=== PATIENT | female | born 1950 | race Caucasian/White ===

== ENCOUNTER → 2016-12-03 | Outpatient (CLI) | payer OTHER ==
[~2016-12-03] MED LIST: ALEV220C2 PO; BYDU1INJ SC; LANTINJ4 SC; LISI10TA4 PO; MISO200T3 PO; NOVOINJ3 SC; OMEP40CA2 PO; SIMV80TA PO; TRAM50TA2 PO; ZOLO100T PO
[2016-12-03 19:49] LABS: MEAN CORPUSCULAR HEMOGLOBIN 28.9 pg (27.0-33.0); MEAN CORPUSCULAR HGB CONC 33.2 g/dl (32.0-36.5); MEAN CORPUSCULAR VOLUME 87.1 fl (80.0-96.0); RED CELL DISTRIBUTION WIDTH 12.5 % (11.5-14.5)
[2016-12-03 20:05] LABS: ALBUMIN 4.2 GM/DL (3.2-5.2); ALBUMIN/GLOBULIN RATIO 1.14 (1.00-1.93); ALKALINE PHOSPHATASE 97 U/L (45-117); ALT/SGPT 17 U/L (12-78); ANION GAP 10 MEQ/L (8-16); AST/SGOT 17 U/L (15-37); BILIRUBIN,TOTAL 0.4 MG/DL (0.2-1.0); BLOOD UREA NITROGEN 20 MG/DL (7-18); CALCIUM LEVEL 9.8 MG/DL (8.8-10.2); CARBON DIOXIDE LEVEL 27 MEQ/L (21-32); CHLORIDE LEVEL 107 MEQ/L (98-107); CREATININE FOR GFR 0.92 MG/DL (0.55-1.02); GLOMERULAR FILTRATION RATE > 60.0 (>45); GLUCOSE, FASTING 170 MG/DL (80-110); POTASSIUM SERUM 4.2 MEQ/L (3.5-5.1); SODIUM LEVEL 144 MEQ/L (136-145); TOTAL PROTEIN 7.9 GM/DL (6.4-8.2)
== END ==
LOC: M WUC 17:18
PROVIDERS: ATTEND Family Medicine
DX: Z01.812 Encounter for preprocedural laboratory examination (principal)

== ENCOUNTER → 2016-12-16 | Day surgery (SDC) | payer OTHER ==
[~2016-12-16] VITALS: Ht 162.6 cm; Wt 88.5 kg
[~2016-12-16] MED LIST changes: +KETOROLAC 30 MG/ML VIAL (J1885) IV SCH; +KETOROLAC 60 MG/2 ML VIAL (J1885) As Ordered ONE; +LIDOCAINE 2% INJ 100 MG/5 ML SDV (FOR ANES.) As Ordered ONE; +LR 1,000 ML IV SCH; +MIDAZOLAM INJ 2 MG/2 ML VIAL (J2250) As Ordered ONE; +ONDANSETRON 4MG/2ML VIAL (J2405) As Ordered ONE; +PERCOCET 5MG/325MG TAB PO PRN; +PROPOFOL 200 MG/20 ML VIAL As Ordered ONE; +fentaNYL 100 MCG/2 ML INJECTION (J3010) As Ordered ONE; +fentaNYL 100 MCG/2 ML INJECTION (J3010) IV PRN
[2016-12-16 11:24] LABS: MEAN CORPUSCULAR HGB CONC 34.1 g/dl (32.0-36.5); MEAN CORPUSCULAR VOLUME 87.9 fl (80.0-96.0); RED CELL DISTRIBUTION WIDTH 12.5 % (11.5-14.5); WHITE BLOOD COUNT 6.5 K/mm3 (4.0-10.0)
--- NOTE | 2016-12-16 16:21 | RO ---
DATE OF PROCEDURE: 12/16/2016 PREOPERATIVE DIAGNOSIS: 1. Postmenopausal bleeding. POSTOPERATIVE DIAGNOSIS: 1. Postmenopausal bleeding. 2. Endometrial polyp. PROCEDURE PERFORMED: Hysteroscopy, dilation and curettage with the MyoSure. SURGEON: Iris Ann MD EQUIP MAINT ENG: ANESTHESIA: General anesthesia via a laryngeal mask airway. PREOPERATIVE ANTIBIOTICS: None. ESTIMATED BLOOD LOSS: 5 mL. SPECIMENS: Endometrial polyp. INTRAVENOUS FLUIDS: 800 mL of lactated Ringer's solution. URINE OUTPUT: 100 mL. OPERATIVE FINDINGS: Approximately 3 cm endometrial polyp, patient sounded to 9 cm, bilateral ostia were visualized. DESCRIPTION OF PROCEDURE: After informed consent was obtained and written consent was reviewed, the patient was brought to the operating room where general anesthesia was obtained. She was then placed in the lithotomy position and was prepped and draped in the normal sterile fashion. A time-out in the operating room was then performed identifying the patient, procedure to be performed as well as drug allergies. [place] speculum was then placed revealing the cervix. The anterior lip of the cervix was grasped with a single-tooth tenaculum. The cervix was then sounded to 9 cm. The cervix was then sequentially dilated using Hanks dilators. The hysteroscope was then advanced through the cervical os revealing a 3 cm endometrial polyp. The MyoSure morcellator was then advanced through the hysteroscope and the endometrial polyp was then morcellated using the MyoSure. The MyoSure device as well as hysteroscope was removed. A sharp curette was then advanced through the cervical os at the level of the fundus and the uterus was curetted in a 360-degree fashion. Specimens were collected and all were sent to pathology for evaluation. Single-tooth tenaculum was then removed, tenaculum site was noted to be hemostatic. The speculum was then removed. In-and-out catheter was then performed productive of 100 mL of clear urine. The patient was taken out of the lithotomy position, was awakened from general anesthesia and taken to recovery in stable condition. Counts were correct.
[2016-12-16 16:45] VITALS: BP 173/74
== END | disposition home or self-care (01) ==
LOC: M SDC 10:59
PROVIDERS: ATTEND Obstetrics & Gynecology
DX: N95.0 Postmenopausal bleeding (principal); N84.0 Polyp of corpus uteri; I10 Essential (primary) hypertension; I77.6 Arteritis, unspecified; E11.40 Type 2 diabetes mellitus with diabetic neuropathy, unspecified; E78.5 Hyperlipidemia, unspecified; T88.59XD Other complications of anesthesia, subsequent encounter; K44.9 Diaphragmatic hernia without obstruction or gangrene; K21.9 Gastro-esophageal reflux disease without esophagitis; M79.7 Fibromyalgia; F32.9 Major depressive disorder, single episode, unspecified; Z88.2 Allergy status to sulfonamides; Z88.5 Allergy status to narcotic agent; Z88.7 Allergy status to serum and vaccine; Z88.8 Allergy status to other drugs, medicaments and biological substances; Z79.899 Other long term (current) drug therapy; Z79.4 Long term (current) use of insulin; Z78.0 Asymptomatic menopausal state; Z98.51 Tubal ligation status
CPT/HCPCS: 36415; 58558; 85027; 86850; 86900; 86901; 88305; J1885; J2250; J2405; J3010

== ENCOUNTER 2017-02-05 09:24 | Day surgery (SDC) | payer OTHER ==
[~2017-02-05] VITALS: Ht 165.1 cm; Wt 91.2 kg
[2017-02-05] VITALS (7 sets, daily range): BP systolic 111–126; BP diastolic 52–60
[~2017-02-05 09:24] MED LIST changes: -KETOROLAC 30 MG/ML VIAL (J1885) IV SCH; -KETOROLAC 60 MG/2 ML VIAL (J1885) As Ordered ONE; -LR 1,000 ML IV SCH; -PERCOCET 5MG/325MG TAB PO PRN; +ROCURONIUM BROMIDE 50 MG/5 ML VIAL As Ordered ONE; -fentaNYL 100 MCG/2 ML INJECTION (J3010) IV PRN
[2017-02-05] MEDS ORDERED: LR 1,000 ML IV SCH ×2 (09:45→13:45)
[2017-02-05] MEDS ORDERED: BUPIVACAINE HCL 0.25% 30 ML VIAL As Ordered ONE (10:21)
[2017-02-05] MEDS ORDERED: fentaNYL 100 MCG/2 ML INJECTION (J3010) As Ordered ONE (11:11)
[2017-02-05] MEDS ORDERED: ROCURONIUM BROMIDE 50 MG/5 ML VIAL As Ordered ONE (11:12)
[2017-02-05] MEDS ORDERED: HYDROmorphone HCL 2 MG/ML 1ML VIAL (J1170) As Ordered ONE (12:07)
[2017-02-05] MEDS ORDERED: NEOSTIGMINE 1MG/ML 5 ML SYRINGE (J2710) As Ordered ONE (12:45)
[2017-02-05] MEDS ORDERED: GLYCOPYRROLATE INJ 0.2 MG/ML 2 ML VIAL As Ordered ONE (12:45)
[2017-02-05] MEDS ORDERED: KETOROLAC 30 MG/ML VIAL (J1885) As Ordered ONE (13:30)
[2017-02-05] MEDS: KETOROLAC 30 MG/ML VIAL (J1885) IV SCH ×2 (13:38→20:12)
[2017-02-05] MEDS ORDERED: KETOROLAC 30 MG/ML VIAL (J1885) IV PRN (13:45)
[2017-02-05] MEDS ORDERED: fentaNYL 100 MCG/2 ML INJECTION (J3010) IV PRN (13:45)
[2017-02-05] MEDS ORDERED: HYDROmorphone HCL 1 MG/ML SYRINGE (J1170) IV PRN (13:45)
[2017-02-05] MEDS ORDERED: ONDANSETRON 4MG/2ML VIAL (J2405) IV PRN (13:45)
[2017-02-05] MEDS ORDERED: PERCOCET 5MG/325MG TAB PO PRN (13:45)
[2017-02-05] MEDS ORDERED: zolPIDEM TARTRATE 10MG TAB PO PRN (14:00)
[2017-02-05] MEDS ORDERED: PROMETHAZINE INJ 25 MG/ML VIAL (J2550) IV PRN (14:00)
[2017-02-05] MEDS ORDERED: traMADol 50 MG TAB PO PRN ×2 (14:00)
[2017-02-05] MEDS ORDERED: MORPHINE 4 MG/ML 1ML SYRINGE IV PRN (14:00)
[2017-02-05] MEDS: LR 1,000 ML IV SCH ×2 (15:59→18:27)
[2017-02-06] VITALS: BP 106/53
[2017-02-06] MEDS: KETOROLAC 30 MG/ML VIAL (J1885) IV SCH ×2 (02:21→07:56)
[2017-02-06 04:00] VITALS: BP 129/59
[2017-02-06] MEDS: LR 1,000 ML IV SCH (06:00)
--- NOTE | 2017-02-06 07:25 | RO ---
DATE OF PROCEDURE: 02/05/2017 PREOPERATIVE DIAGNOSIS: Endometrial hyperplasia. POSTOPERATIVE DIAGNOSIS: Endometrial hyperplasia. PROCEDURE PERFORMED: 1. Robotic-assisted laparoscopic hysterectomy. 2. Left oophorectomy. 3. Cystoscopy. SURGEON: Iris Ann MD AUTO RENTAL CLERK: NATHANIEL Reyes ANESTHESIA: General endotracheal anesthesia. INTRAVENOUS FLUIDS: 1300 mL of lactated Ringer's solution. SPECIMENS: Cervix. Uterus. Left ovary. PREOPERATIVE ANTIBIOTICS: 3 grams of Ancef. OPERATIVE FINDINGS: Approximately 10 week size uterus. Atrophic appearing bilateral adnexa. CYSTOSCOPIC FINDINGS: Good urethral reflux bilaterally. No evidence of trauma to the bladder or foreign bodies. DESCRIPTION OF OPERATION: After informed consent was obtained and written consent was reviewed, the patient was brought to the operating room where general endotracheal anesthesia was obtained. She was then placed in the lithotomy position, and was prepped and draped in a normal sterile fashion. A time out in the operating room was then performed identifying the patient, procedure to be performed as well as drug allergies. A speculum was then placed revealing the cervix. The anterior and posterior aspect of the cervix was stitched with #0 Vicryl. The uterus was then sequentially dilated using Hanks dilators. A medium V-care uterine manipulator was then advanced through the cervical os for means to manipulate the uterus. The uterine balloon was then insufflated with 10 mL of air. The cervical as well as the vaginal sleeve was advanced down into the vagina. Instruments were removed from the vagina. A Gabriel catheter was then placed and set to gravity. Gloves were changed and attention was turned to the patient's abdomen where a Veress needle was placed in the umbilicus. A pneumoperitoneum was then obtained with CO2 gas. The supraumbilical area was infused with 0.25% Marcaine. An incision was made in this area and a 12 mm trocar sleeve was advanced through this incision. A laparoscope was then placed revealing intra-abdominal placement. Two lateral ports, left and to the right of the umbilicus were placed. Each of these were infused with 0.25% Marcaine. 8 mm trocars and sleeves were advanced through each one of these incisions under direct visualization. A fourth trocar was placed to the left side of the patient's abdomen. This area was infused with 0.25% Marcaine. An incision was made in this area, and another 8 mm trocar sleeve was advanced through this incision under direct visualization. Next, the Da Genaro was then advanced to the patient's table and it was docked utilizing a camera arm and two operative arms. Utilizing the Da Genaro equipment, with bipolar cautery the utero-ovarian ligaments were then cauterized and ligated with good hemostasis noted bilaterally. The round ligaments on both sides were then cauterized and ligated with good hemostasis noted. The anterior lip of the broad ligament was then dissected along with the bladder creating a bladder flap. The remainder of the broad ligaments and cardinal ligaments were then cauterized and ligated with good hemostasis noted. The uterine arteries were then skeletonized bilaterally and was cauterized and ligated with good hemostasis noted. The anterior and posterior colpotomies were then made, and the uterus was removed vaginally. Surgical sites were inspected and noted to be hemostatic. Next, a left oophorectomy was then performed. The right ovary was densely adhered to the pelvic sidewall and very atrophic. I made a decision to forego the prophylactic right oophorectomy. The left ovary was then placed in traction. The infundibulopelvic ligament was then cauterized and ligated with good hemostasis noted. The specimen was brought out through the vaginal incision. Next, the vaginal cuff was closed laparoscopically using the #2-0 V-Loc system in a running fashion. Surgical sites were inspected and noted to be hemostatic. The abdomen was then irrigated and suctioned. Ebony was applied over the surgical field. Next, cystoscopy was performed. The Gabriel catheter was then removed. A cystoscope was advanced through the urethra. A cystoscopy was performed revealing normal bladder mucosa, bilateral ureteral jets. The bladder was then drained. Gloves were changed and attention was turned to the patient's abdomen where all skin incisions were closed with #4-0 Monocryl and was dressed with Dermabond. The patient was then taken out of lithotomy position, was awakened from general anesthesia, and taken to recovery in stable condition. Marilu Valle, my produce assistant, played an essential role in this operation. She assisted with identification of vital structures, manipulation, port placement, as well as skin closure. Counts were correct. PARVIN
[2017-02-06 07:27] LABS: MEAN CORPUSCULAR HEMOGLOBIN 28.7 pg (27.0-33.0); MEAN CORPUSCULAR HGB CONC 32.8 g/dl (32.0-36.5); MEAN CORPUSCULAR VOLUME 87.5 fl (80.0-96.0); RED CELL DISTRIBUTION WIDTH 12.8 % (11.5-14.5); WHITE BLOOD COUNT 7.7 K/mm3 (4.0-10.0)
[2017-02-06 08:00] VITALS: BP 112/52
[2017-02-06] MEDS ORDERED: GLUCOSE 4 GM CHEW TABLET PO PRN (09:00)
[2017-02-06] MEDS ORDERED: DEXTROSE 50% 50 ML SYRINGE IV PRN (09:00)
[2017-02-06] MEDS ORDERED: GLUCAGON FOR INJ 1 MG VIAL (J1610) SC PRN (09:00)
[2017-02-06] MEDS: HumaLOG INSULIN (NovoLOG) PER UNIT SC SCH ×2 (09:11→12:02)
[2017-02-06 12:00] VITALS: BP 122/57
== END 2017-02-06 13:40 | disposition home or self-care (01) ==
LOC: M SDC 09:24 → M PED 15:06 → M SDC 02-06 13:40
PROVIDERS: ATTEND Obstetrics & Gynecology
DX: N85.00 Endometrial hyperplasia, unspecified (principal); M79.7 Fibromyalgia; T88.59XD Other complications of anesthesia, subsequent encounter; I10 Essential (primary) hypertension; E78.5 Hyperlipidemia, unspecified; E11.41 Type 2 diabetes mellitus with diabetic mononeuropathy; K44.9 Diaphragmatic hernia without obstruction or gangrene; K21.9 Gastro-esophageal reflux disease without esophagitis; M54.9 Dorsalgia, unspecified; F32.9 Major depressive disorder, single episode, unspecified; Z88.2 Allergy status to sulfonamides; Z88.5 Allergy status to narcotic agent; Z88.7 Allergy status to serum and vaccine; Z88.8 Allergy status to other drugs, medicaments and biological substances; Z91.09 Other allergy status, other than to drugs and biological substances; Z79.899 Other long term (current) drug therapy; Z85.42 Personal history of malignant neoplasm of other parts of uterus; Z98.51 Tubal ligation status
CPT/HCPCS: 36415; 58571; 85027; 86850; 86900; 86901; 88309; 96374; 96375; J0690; J1170; J1885; J2250; J2405; J2710; J3010

== ENCOUNTER → 2018-03-13 | Outpatient (REF) | payer OTHER ==
[2018-03-13 15:53] LABS: ALBUMIN 3.5 GM/DL (3.2-5.2); ALBUMIN/GLOBULIN RATIO 0.83 (1.00-1.93); ALKALINE PHOSPHATASE 106 U/L (45-117); ALT/SGPT 20 U/L (12-78); ANION GAP 6 MEQ/L (8-16); AST/SGOT 21 U/L (7-37); BILIRUBIN,TOTAL 0.4 MG/DL (0.2-1.0); BLOOD UREA NITROGEN 23 MG/DL (7-18); CALCIUM LEVEL 8.8 MG/DL (8.8-10.2); CARBON DIOXIDE LEVEL 28 MEQ/L (21-32); CHLORIDE LEVEL 107 MEQ/L (98-107); CHOLESTEROL LEVEL 323 MG/DL (<200); CHOLESTEROL RISK RATIO 7.511 (<5); CREATININE FOR GFR 1.05 MG/DL (0.55-1.30); FREE T4 0.87 NG/DL (0.76-1.46); GLOMERULAR FILTRATION RATE 55.7 (>45); GLUCOSE, FASTING 219 MG/DL (70-100); HDL CHOLESTEROL 43 MG/DL (>40); NON-HDL-C 280 MG/DL; POTASSIUM SERUM 4.8 MEQ/L (3.5-5.1); SODIUM LEVEL 141 MEQ/L (136-145); TOTAL PROTEIN 7.7 GM/DL (6.4-8.2); TRIGLYCERIDES LEVEL 497 MG/DL (<150)
== END ==
LOC: M LABDRAW1 13:53
DX: E04.0 Nontoxic diffuse goiter (principal); E78.2 Mixed hyperlipidemia
CPT/HCPCS: 84443

== ENCOUNTER → 2018-06-05 | Outpatient (REF) | payer OTHER ==
[2018-06-05 13:57] LABS: CHOLESTEROL LEVEL 242 MG/DL (<200); CHOLESTEROL RISK RATIO 4.938 (<5); HDL CHOLESTEROL 49 MG/DL (>40); LDL CHOLESTEROL 159.4 MG/DL (<100); NON-HDL-C 193 MG/DL; TRIGLYCERIDES LEVEL 168 MG/DL (<150)
== END ==
LOC: M LABDRAW1 13:08
DX: E78.2 Mixed hyperlipidemia (principal)

== ENCOUNTER → 2018-06-11 | Outpatient (CLI) | payer OTHER | LOC: M WHC 12:55 | DX: R10.2 Pelvic and perineal pain (principal); Z90.710 Acquired absence of both cervix and uterus | CPT/HCPCS: 76830 ==

== ENCOUNTER → 2018-09-04 | Outpatient (REF) | payer OTHER ==
[2018-09-04 16:39] LABS: ALBUMIN 3.6 GM/DL (3.2-5.2); ALBUMIN/GLOBULIN RATIO 0.92 (1.00-1.93); ALKALINE PHOSPHATASE 90 U/L (45-117); ALT/SGPT 19 U/L (12-78); ANION GAP 7 MEQ/L (8-16); AST/SGOT 17 U/L (7-37); BILIRUBIN,TOTAL 0.3 MG/DL (0.2-1.0); BLOOD UREA NITROGEN 27 MG/DL (7-18); CALCIUM LEVEL 9.2 MG/DL (8.8-10.2); CARBON DIOXIDE LEVEL 28 MEQ/L (21-32); CHLORIDE LEVEL 106 MEQ/L (98-107); GLOMERULAR FILTRATION RATE 52.6 (>45); GLUCOSE, FASTING 197 MG/DL (70-100); POTASSIUM SERUM 4.2 MEQ/L (3.5-5.1); SODIUM LEVEL 141 MEQ/L (136-145); TOTAL PROTEIN 7.5 GM/DL (6.4-8.2)
[2018-09-04 16:46] LABS: BASO % 0.3 % (0.0-1.0); EOS # 0.1 10^3/uL (0.0-0.50); EOS % 1.5 % (0.0-3.0); HEMATOCRIT 42.3 % (36.0-47.0); HEMOGLOBIN 13.6 g/dl (12.0-15.5); IMMATURE GRANULOCYTE % 0.3 % (0-3.0); LYMPH # 2.5 10^3/uL (1.5-4.5); MEAN CORPUSCULAR HEMOGLOBIN 28.6 pg (27.0-33.0); MEAN CORPUSCULAR HGB CONC 32.2 g/dl (32.0-36.5); MEAN CORPUSCULAR VOLUME 89.1 fl (80.0-96.0); MONO # 0.4 10^3/uL (0.0-0.8); MONO % 6.6 % (0.0-5.0); NEUTROPHILS # 3.4 10^3/uL (1.8-7.7); NEUTROPHILS % 53.3 % (36.0-66.0); PLATELET COUNT, AUTOMATED 206 10^3/uL (150-450); RED BLOOD COUNT 4.75 10^6/uL (4.00-5.40); RED CELL DISTRIBUTION WIDTH 12.3 % (11.5-14.5); WHITE BLOOD COUNT 6.5 10^3/uL (4.0-10.0)
[2018-09-04 18:00] LABS: ERYTHROCYTE SEDIMENTATION RATE 26 mm/hr (0-30)
== END ==
LOC: M LABDRAW1 15:56
DX: Z79.899 Other long term (current) drug therapy (principal)

== ENCOUNTER → 2019-07-09 | Outpatient (CLI) | payer OTHER ==
[~2019-07-09] MED LIST changes: -LIDOCAINE 2% INJ 100 MG/5 ML SDV (FOR ANES.) As Ordered ONE; -MIDAZOLAM INJ 2 MG/2 ML VIAL (J2250) As Ordered ONE; -MISO200T3 PO; +MISO200T56 PO; -ONDANSETRON 4MG/2ML VIAL (J2405) As Ordered ONE; -PROPOFOL 200 MG/20 ML VIAL As Ordered ONE; -ROCURONIUM BROMIDE 50 MG/5 ML VIAL As Ordered ONE; -SIMV80TA PO; +SIMV80TA13 PO; -fentaNYL 100 MCG/2 ML INJECTION (J3010) As Ordered ONE
--- NOTE | 2019-07-09 14:16 | REPMRS ---
Patient History The patient states she had a clinical breast exam in 06/2019. Patient is postmenopausal and has history of endometrial cancer at age 66. Family history of breast cancer at age 50 or over in mother, breast cancer at age 37 in sister, breast cancer at age 49 in niece, breast cancer at age 41 in daughter. Benign excisional biopsy of the left breast, 2006. Excisional biopsy. No Hormone Replacement Therapy 3D TOMOSYNTHESIS WAS PERFORMED. The [facility] lifetime risk for breast cancer is 13.0%. Digital Woman Screen Mammo: July 09, 2019 - Exam #: [id number] Bilateral CC and MLO view(s) were taken. Technologist: Shanique Quiles, Technologist Prior study comparison: September 27, 2016, digital woman screen mammo performed at [facility]. June 02, 2015, digital woman screen mammo performed at [facility]. FINDINGS: The breast tissue is heterogeneously dense. This may lower the sensitivity of mammography. There has been no change in the appearance of the mammogram from the prior studies. There is a moderate amount of residual fibroglandular tissue which is fairly symmetric. There is no interval development of dominant mass, areas of architectural distortion, or clustered microcalcification typical of malignancy. Assessment: BI-RADS/ACR category 1 mammogram. Negative Mammogram. Recommendation Routine screening mammogram in 1 year (for women over age 40). This mammogram was interpreted with the aid of an FDA-approved computer-aided dectection system. Electronically Signed By: Rigoberto Spencer MD 07/09/19 [id number]
== END ==
LOC: M WHC 13:19
PROVIDERS: ATTEND Nurse Practitioner Family
DX: Z12.31 Encounter for screening mammogram for malignant neoplasm of breast (principal); Z78.0 Asymptomatic menopausal state; Z85.42 Personal history of malignant neoplasm of other parts of uterus; Z80.3 Family history of malignant neoplasm of breast

== ENCOUNTER → 2019-09-06 | Outpatient (REF) | payer OTHER ==
[~2019-09-06] MED LIST changes: -OMEP40CA2 PO; +OMEP40CA97 PO
[2019-09-06 13:21] LABS: ALBUMIN 3.7 GM/DL (3.2-5.2); ALT/SGPT 15 U/L (12-78); BILIRUBIN,TOTAL 0.4 MG/DL (0.2-1.0); BLOOD UREA NITROGEN 20 MG/DL (7-18); CALCIUM LEVEL 9.6 MG/DL (8.8-10.2); CARBON DIOXIDE LEVEL 32 MEQ/L (21-32); CHLORIDE LEVEL 105 MEQ/L (98-107); CHOLESTEROL LEVEL 233 MG/DL (<200); CHOLESTEROL RISK RATIO 4.236 (<5); CREATININE FOR GFR 0.89 MG/DL (0.55-1.30); FREE T4 0.85 NG/DL (0.76-1.46); GLOMERULAR FILTRATION RATE > 60.0 (>45); GLUCOSE, FASTING 180 MG/DL (70-100); HDL CHOLESTEROL 55 MG/DL (>40); LDL CHOLESTEROL 128 MG/DL (<100); NON-HDL-C 178 MG/DL; POTASSIUM SERUM 4.6 MEQ/L (3.5-5.1); SODIUM LEVEL 141 MEQ/L (136-145); TRIGLYCERIDES LEVEL 250 MG/DL (<150)
[2019-09-06 13:30] LABS: MALB URINE SIEMENS 14.9 MG/L; MAU/CREAT RATIO 13.6 MCG/MG (0.0-30.0)
== END ==
LOC: M LABDRAW1 09:30
PROVIDERS: ATTEND Nurse Practitioner Family
DX: E78.2 Mixed hyperlipidemia (principal); E04.0 Nontoxic diffuse goiter; E11.65 Type 2 diabetes mellitus with hyperglycemia

== ENCOUNTER → 2020-04-19 | Outpatient (CLI) | payer MEDICARE ==
[2020-04-19 07:30] LABS: ALBUMIN 3.4 GM/DL (3.2-5.2); ALT/SGPT 16 U/L (12-78); BILIRUBIN,TOTAL 0.3 MG/DL (0.2-1.0); BLOOD UREA NITROGEN 20 MG/DL (7-18); CALCIUM LEVEL 9.2 MG/DL (8.8-10.2); CARBON DIOXIDE LEVEL 27 MEQ/L (21-32); CHLORIDE LEVEL 108 MEQ/L (98-107); CHOLESTEROL LEVEL 277 MG/DL (<200); CHOLESTEROL RISK RATIO 7.102 (<5); CREATININE FOR GFR 0.89 MG/DL (0.55-1.30); FREE T4 0.95 NG/DL (0.76-1.46); GLOMERULAR FILTRATION RATE > 60.0 (>45); GLUCOSE, FASTING 123 MG/DL (70-100); HDL CHOLESTEROL 39 MG/DL (>40); LDL CHOLESTEROL 185 MG/DL (<100); NON-HDL-C 238 MG/DL; POTASSIUM SERUM 4.1 MEQ/L (3.5-5.1); SODIUM LEVEL 139 MEQ/L (136-145); TOTAL PROTEIN 7.6 GM/DL (6.4-8.2); TRIGLYCERIDES LEVEL 263 MG/DL (<150)
== END ==
LOC: M LAB 06:06
PROVIDERS: ATTEND Nurse Practitioner Family
DX: E78.2 Mixed hyperlipidemia (principal)

== ENCOUNTER → 2020-08-11 | Outpatient (REF) | payer MEDICARE ==
[2020-08-11 18:09] LABS: MALB URINE SIEMENS 27.4 MG/L; MAU/CREAT RATIO 20.6 MCG/MG (0.0-30.0)
== END ==
LOC: M LAB REF 16:55
PROVIDERS: ATTEND Internal Medicine Endocrinology, Diabetes & Metabolism
DX: E11.65 Type 2 diabetes mellitus with hyperglycemia (principal)

== ENCOUNTER → 2020-12-08 | Outpatient (CLI) | payer MEDICARE ==
[~2020-12-08] MED LIST changes: +LISI10TA22 PO; -LISI10TA4 PO
--- NOTE | 2020-12-08 10:12 | REPMRS ---
Patient History The patient states she had a clinical breast exam in November 2020. Family history of breast cancer at age 50 or over in mother, breast cancer at age 37 in sister, breast cancer at age 49 in niece, breast cancer at age 41 in daughter. Benign excisional biopsy of the left breast, 2007. Excisional biopsy. No Hormone Replacement Therapy Digital Woman Screen Mammo: December 08, 2020 - Exam #: [id number] Bilateral CC and MLO view(s) were taken. Technologist: Noemi Abdi Technologist Prior study comparison: July 09, 2019, bilateral digital woman screen mammo performed at [facility]. September 27, 2016, digital woman screen mammo performed at [facility]. June 02, 2015, digital woman screen mammo performed at [facility]. FINDINGS: There are scattered fibroglandular densities. The Volpara volumetric breast density category is:B. There has been no change in the appearance of the mammogram from the prior studies. There is a mild amount of scattered fibroglandular density which is fairly symmetric. There is no interval development of dominant mass, architectural distortion, or grouped microcalcification suggestive of malignancy. 3-D tomosynthesis shows no additional findings. Assessment: BI-RADS/ACR category 1 mammogram. Negative Mammogram. Recommendation Routine screening mammogram of both breasts in 1 year (for women over age 40). This patient's [facility] Lifetime Breast Cancer Risk is estimated at 11.6 %. This mammogram was interpreted with the aid of an FDA-approved computer-aided dectection system. Electronically Signed By: Chano Siddiqui MD 12/08/20 101
== END ==
LOC: M WHC 09:06
PROVIDERS: ATTEND Nurse Practitioner Family
DX: Z12.31 Encounter for screening mammogram for malignant neoplasm of breast (principal); Z80.3 Family history of malignant neoplasm of breast; Z86.018 Personal history of other benign neoplasm

== ENCOUNTER → 2021-01-01 | Outpatient (CLI) | payer MEDICARE ==
[2021-01-01 09:45] LABS: CREATININE FOR GFR 1.1 MG/DL (0.55-1.30); GLOMERULAR FILTRATION RATE 52.3 (>39); POTASSIUM SERUM 4.3 MEQ/L (3.5-5.1)
== END ==
LOC: M LAB 08:47
PROVIDERS: ATTEND Nurse Practitioner Family
DX: E11.65 Type 2 diabetes mellitus with hyperglycemia (principal)

== ENCOUNTER → 2021-04-20 | Outpatient (CLI) | payer MEDICARE ==
[~2021-04-20] MED LIST changes: +OMEP40CA4 PO; -OMEP40CA97 PO
[2021-04-20 14:26] LABS: ALBUMIN 3.8 GM/DL (3.2-5.2); ALT/SGPT 15 U/L (12-78); BILIRUBIN,TOTAL 0.7 MG/DL (0.2-1.0); BLOOD UREA NITROGEN 17 MG/DL (7-18); CALCIUM LEVEL 9.3 MG/DL (8.8-10.2); CARBON DIOXIDE LEVEL 29 MEQ/L (21-32); CHLORIDE LEVEL 107 MEQ/L (98-107); CHOLESTEROL LEVEL 118 MG/DL (<200); CHOLESTEROL RISK RATIO 2.034 (<5); GLOMERULAR FILTRATION RATE > 60.0 (>39); GLUCOSE, FASTING 60 MG/DL (70-100); HDL CHOLESTEROL 58 MG/DL (>40); LDL CHOLESTEROL 37 MG/DL (<100); NON-HDL-C 60 MG/DL; POTASSIUM SERUM 4.1 MEQ/L (3.5-5.1); SODIUM LEVEL 140 MEQ/L (136-145); TRIGLYCERIDES LEVEL 117 MG/DL (<150)
== END ==
LOC: M PLALAB 10:01
PROVIDERS: ATTEND Nurse Practitioner Family
DX: E78.2 Mixed hyperlipidemia (principal); E04.0 Nontoxic diffuse goiter

== ENCOUNTER → 2021-10-05 | Outpatient (REF) | payer MEDICARE ==
[2021-10-08 21:37] LABS: CREATININE, URINE 52.1 MG/DL; MALB URINE SIEMENS 16.8 MG/L; MAU/CREAT RATIO 32.2 MCG/MG (0.0-30.0)
== END ==
LOC: M LAB REF 17:09
PROVIDERS: ATTEND Nurse Practitioner Family
DX: E11.65 Type 2 diabetes mellitus with hyperglycemia (principal)

== ENCOUNTER → 2022-05-03 | Outpatient (CLI) | payer MEDICARE ==
[2022-05-03 13:13] LABS: HEMATOCRIT 43.2 % (36.0-47.0); MEAN CORPUSCULAR HEMOGLOBIN 29.1 pg (27.0-33.0); MEAN CORPUSCULAR HGB CONC 32.4 g/dl (32.0-36.5); MEAN CORPUSCULAR VOLUME 89.8 fl (80.0-96.0); PLATELET COUNT, AUTOMATED 186 10^3/uL (150-450); RED BLOOD COUNT 4.81 10^6/uL (4.00-5.40); WHITE BLOOD COUNT 5.9 10^3/uL (4.0-10.0)
[2022-05-03 13:49] LABS: BLOOD UREA NITROGEN 13 MG/DL (7-18); CALCIUM LEVEL 9.5 MG/DL (8.8-10.2); CARBON DIOXIDE LEVEL 29 MEQ/L (21-32); CHLORIDE LEVEL 111 MEQ/L (98-107); CREATININE FOR GFR 0.88 MG/DL (0.55-1.30); GLOMERULAR FILTRATION RATE > 60.0 (>39); GLUCOSE, FASTING 87 MG/DL (70-100); SODIUM LEVEL 143 MEQ/L (136-145)
[2022-05-03 13:50] LABS: ALBUMIN 3.8 GM/DL (3.2-5.2); ALT/SGPT 16 U/L (12-78); BILIRUBIN,TOTAL 0.6 MG/DL (0.2-1.0); CHOLESTEROL LEVEL 139 MG/DL (<200); CHOLESTEROL RISK RATIO 2.241 (<5); HDL CHOLESTEROL 62 MG/DL (>40); LDL CHOLESTEROL 56 MG/DL (<100); NON-HDL-C 77 MG/DL; TOTAL PROTEIN 7.6 GM/DL (6.4-8.2); TRIGLYCERIDES LEVEL 106 MG/DL (<150)
[2022-05-03 14:23] LABS: HEMOGLOBIN A1c 6.4 %
== END ==
LOC: M PLALAB 10:48
PROVIDERS: ATTEND Family Medicine
DX: I10 Essential (primary) hypertension (principal); E11.9 Type 2 diabetes mellitus without complications

== ENCOUNTER → 2022-09-27 | Outpatient (CLI) | payer MEDICARE | LOC: M SOG 13:17 | PROVIDERS: ATTEND Physician Assistant | DX: M65.4 Radial styloid tenosynovitis [de Quervain] (principal); M79.642 Pain in left hand; M79.641 Pain in right hand ==

== ENCOUNTER → 2022-09-30 | Outpatient (REF) | payer MEDICARE ==
[2022-09-30 19:49] LABS: CREATININE, URINE 146.7 MG/DL
== END ==
LOC: M LAB REF 16:55
PROVIDERS: ATTEND Nurse Practitioner Family
DX: E11.65 Type 2 diabetes mellitus with hyperglycemia (principal)

== ENCOUNTER → 2023-05-01 | Outpatient (CLI) | payer MEDICARE | LOC: M WHC 13:58 | PROVIDERS: ATTEND Nurse Practitioner Family | DX: Z12.31 Encounter for screening mammogram for malignant neoplasm of breast (principal) ==

== ENCOUNTER → 2023-07-11 | Outpatient (CLI) | payer MEDICARE ==
[~2023-07-11] MED LIST changes: -MISO200T56 PO; +MISO200T83 PO
[2023-07-11 14:00] LABS: CREATININE, URINE 133.7 MG/DL
[2023-07-11 14:01] LABS: MAU/CREAT RATIO 4.4 MCG/MG (0.0-30.0); THYROID STIMULATING HORMONE 2.557 uIU/ML (0.55-4.78)
[2023-07-11 14:02] LABS: ALBUMIN 3.9 G/DL (3.2-5.2); ALKALINE PHOSPHATASE 79 U/L (46-116); ALT/SGPT 20 U/L (7.0-40); AST/SGOT 22 U/L (<34); BILIRUBIN,TOTAL 0.7 MG/DL (0.3-1.2); BLOOD UREA NITROGEN 18 MG/DL (9-23); CALCIUM LEVEL 9.5 MG/DL (8.3-10.6); CARBON DIOXIDE LEVEL 30 MMOL/L (20-31); CHLORIDE LEVEL 106 MMOL/L (98-107); CHOLESTEROL LEVEL 137 MG/DL (<200); CHOLESTEROL RISK RATIO 2.24 (<5); CREATININE FOR GFR 0.92 MG/DL (0.55-1.30); GLOMERULAR FILTRATION RATE > 60.0 (>39); GLUCOSE, FASTING 87 MG/DL (74-106); HDL CHOLESTEROL 60.9 MG/DL (>40); LDL CHOLESTEROL 59.5 MG/DL (<100); NON-HDL-C 76.1 MG/DL; POTASSIUM SERUM 4.8 MMOL/L (3.5-5.1); SODIUM LEVEL 143 MMOL/L (136-145); TOTAL PROTEIN 7.6 G/DL (5.7-8.2); TRIGLYCERIDES LEVEL 83 MG/DL (<150)
== END ==
LOC: M PLALAB 10:07
PROVIDERS: ATTEND Nurse Practitioner Family
DX: E78.2 Mixed hyperlipidemia (principal); E04.0 Nontoxic diffuse goiter; E11.65 Type 2 diabetes mellitus with hyperglycemia

== ENCOUNTER 2024-05-06 14:34 | Inpatient (IN) | payer MEDICARE ==
[~2024-05-06] VITALS: Ht 165.1 cm; Wt 87.9 kg
[2024-05-06] MEDS ORDERED: INSU100I24 SC (14:50)
[2024-05-06] MEDS ORDERED: EZET10TA21 PO (14:50)
[2024-05-06] MEDS ORDERED: TRUL0.5I SC (14:50)
[2024-05-06 16:08] LABS: BASO % 0.2 % (0.0-1.0); EOS # 0.1 10^3/uL (0.0-0.5); EOS % 0.8 % (0.0-3.0); HEMATOCRIT 41.1 % (36.0-47.0); HEMOGLOBIN 13.4 g/dl (12.0-15.5); LYMPH # 2.8 10^3/uL (1.5-5.0); LYMPH % 30.6 % (24.0-44.0); MEAN CORPUSCULAR HEMOGLOBIN 29.4 pg (27.0-33.0); MEAN CORPUSCULAR HGB CONC 32.6 g/dl (32.0-36.5); MEAN CORPUSCULAR VOLUME 90.1 fl (80.0-96.0); MONO # 0.6 10^3/uL (0.0-0.8); MONO % 6.5 % (2.0-8.0); NEUTROPHILS # 5.6 10^3/uL (1.5-8.5); NEUTROPHILS % 61.6 % (36.0-66.0); PLATELET COUNT, AUTOMATED 181 10^3/uL (150-450); RED BLOOD COUNT 4.56 10^6/uL (4.00-5.40)
[2024-05-06 16:20] LABS: INR 0.99; PROTHROMBIN TIME 12.8 SECONDS (12.5-14.5)
[2024-05-06 17:50] LABS: ALBUMIN 3.8 G/DL (3.2-5.2); BILIRUBIN,DIRECT 0.2 MG/DL (<0.4); BILIRUBIN,TOTAL 0.6 MG/DL (0.3-1.2); CALCIUM LEVEL 8.9 MG/DL (8.3-10.6); CK-MB VALUE MASS 1.3 NG/ML (<3.6); CREATININE FOR GFR 2.6 MG/DL (0.55-1.30); GLOMERULAR FILTRATION RATE 19.2 (>39); MB/CK RELATIVE INDEX 0.55 (< OR =4); POTASSIUM SERUM 4.7 MMOL/L (3.5-5.1)
[2024-05-06] MEDS: NS 1,000 ML IV SCH ×2 (18:15→21:45)
[2024-05-06] MEDS: NS 1,000 ML IV ONE (18:24)
[2024-05-06 18:42] LABS: URIC ACID 9.6 MG/DL (3.1-7.8)
[2024-05-06] MEDS ORDERED: ESOM40CA35 PO (20:35)
[2024-05-06] MEDS ORDERED: ROSU20TA61 PO (20:35)
[2024-05-06] MEDS ORDERED: HOME MED LIST COMPLETE! XX SCH (20:40)
[2024-05-06] MEDS: INSULIN LISPRO (NovoLOG) PER UNIT SC SCH (21:00)
[2024-05-06] MEDS ORDERED: ACETAMINOPHEN TAB 650MG DOSE (2X325MG) PO PRN (21:45)
[2024-05-06] MEDS ORDERED: GLUCAGON INJ 1MG VIAL SC PRN (21:45)
[2024-05-06] MEDS ORDERED: GLUCOSE 4 GM CHEW PO PRN (21:45)
[2024-05-06] MEDS ORDERED: DEXTROSE 50% 50ML SYRINGE IV PRN (21:45)
[2024-05-06] MEDS ORDERED: MIRALAX *UNIT DOSE* 17GM PACKET PO PRN (22:05)
[2024-05-06 23:00] VITALS: BP 120/56; O2SAT 95
[2024-05-06 23:07] VITALS: BP 117/53; O2SAT 98
[2024-05-06 23:15] VITALS: BP 107/56; O2SAT 94
[2024-05-06 23:30] VITALS: BP 154/67; TEMP 98.1
[2024-05-06 23:45] VITALS: O2SAT 93
[2024-05-07] VITALS (26 sets, daily range): BP systolic 103–155; BP diastolic 53–67; TEMP 97.4–97.9; O2SAT 18–98
[2024-05-07 02:02] LABS: OSMOLALITY URINE 488 MOSM/KG (50-1400)
[2024-05-07 03:00] LABS: SODIUM,RANDOM URINE 56 MMOL/L
[2024-05-07 03:10] LABS: CREATININE,RANDOM URINE 135.8 MG/DL
[2024-05-07 04:09] LABS: APPEARANCE, URINE CLEAR (CLEAR); BACTERIA, URINE AUTO 1+ (NEGATIVE); BILIRUBIN, URINE AUTO NEGATIVE (NEGATIVE); BLOOD, URINE BLOOD NEGATIVE (NEGATIVE); COLOR, URINE YELLOW (YELLOW); GLUCOSE, URINE (UA) AUTO NEGATIVE (NEGATIVE); KETONE, URINE AUTO TRACE mg/dL (NEGATIVE); LEUKOCYTE ESTERASE, URINE AUTO NEGATIVE (NEGATIVE); MUCUS, URINE SMALL (NEGATIVE); NITRITE, URINE AUTO NEGATIVE (NEGATIVE); PROTEIN, URINE AUTO NEGATIVE (NEGATIVE); RBC, URINE AUTO 0 /HPF (0-3); SPECIFIC GRAVITY URINE AUTO 1.014 (1.002-1.035); SQUAMOUS EPITHELIAL CELL UR AU 1 /HPF (0-6); UROBILINOGEN, URINE AUTO 0.2 mg/dL (0.0-2.0); WBC, URINE AUTO 2 /HPF (0-3)
[2024-05-07 06:43] LABS: HEMATOCRIT 34.5 % (36.0-47.0); MEAN CORPUSCULAR HEMOGLOBIN 29.6 pg (27.0-33.0); MEAN CORPUSCULAR HGB CONC 32.8 g/dl (32.0-36.5); MEAN CORPUSCULAR VOLUME 90.3 fl (80.0-96.0); PLATELET COUNT, AUTOMATED 143 10^3/uL (150-450); RED BLOOD COUNT 3.82 10^6/uL (4.00-5.40); WHITE BLOOD COUNT 7.2 10^3/uL (4.0-10.0)
[2024-05-07 06:57] LABS: HEMOGLOBIN 11.3 g/dl (12.0-15.5)
[2024-05-07 07:01] LABS: ALBUMIN 3.2 G/DL (3.2-5.2); BILIRUBIN,TOTAL 0.4 MG/DL (0.3-1.2); CALCIUM LEVEL 8.1 MG/DL (8.3-10.6); CREATININE FOR GFR 1.45 MG/DL (0.55-1.30); GLOMERULAR FILTRATION RATE 37.7 (>39); POTASSIUM SERUM 4.1 MMOL/L (3.5-5.1); TOTAL PROTEIN 6.1 G/DL (5.7-8.2)
[2024-05-07] MEDS ORDERED: HEPARIN SOD (PORCINE) 5000UNITS/ML 1ML VIAL/SYRINGE SC SCH (09:00)
[2024-05-07] MEDS ORDERED: DOCUSATE SODIUM 100MG CAPSULE PO SCH (09:00)
[2024-05-07] MEDS: INSULIN LISPRO (NovoLOG) PER UNIT SC SCH (09:07)
[2024-05-07] MEDS: EZETIMIBE 10MG TABLET (ZETIA) PO SCH (09:13)
[2024-05-07] MEDS: ROSUVASTATIN 10 MG TAB (CRESTOR) PO SCH (09:13)
[2024-05-07] MEDS: SERTRALINE 100 MG TAB PO SCH (09:13)
[2024-05-07] MEDS: PANTOPRAZOLE 40MG VIAL IV SCH (09:13)
[2024-05-07 12:56] LABS: HEMATOCRIT 38.1 % (36.0-47.0); HEMOGLOBIN 12.6 g/dl (12.0-15.5); MEAN CORPUSCULAR HEMOGLOBIN 29.4 pg (27.0-33.0); MEAN CORPUSCULAR HGB CONC 33.1 g/dl (32.0-36.5); PLATELET COUNT, AUTOMATED 143 10^3/uL (150-450); RED BLOOD COUNT 4.28 10^6/uL (4.00-5.40); WHITE BLOOD COUNT 5.3 10^3/uL (4.0-10.0)
[2024-05-08 03:24] VITALS: BP 124/60; TEMP 97.5; O2SAT 95
[2024-05-08 08:13] VITALS: BP 113/57; TEMP 97.6; O2SAT 95
[2024-05-08 08:32] LABS: HEMATOCRIT 35.8 % (36.0-47.0); HEMOGLOBIN 11.8 g/dl (12.0-15.5); MEAN CORPUSCULAR HEMOGLOBIN 29.6 pg (27.0-33.0); MEAN CORPUSCULAR VOLUME 89.9 fl (80.0-96.0); PLATELET COUNT, AUTOMATED 166 10^3/uL (150-450); RED BLOOD COUNT 3.98 10^6/uL (4.00-5.40); WHITE BLOOD COUNT 6.7 10^3/uL (4.0-10.0)
[2024-05-08 09:10] LABS: BLOOD UREA NITROGEN 16 MG/DL (9-23); CALCIUM LEVEL 8.8 MG/DL (8.3-10.6); CARBON DIOXIDE LEVEL 24 MMOL/L (20-31); CHLORIDE LEVEL 112 MMOL/L (98-107); CREATININE FOR GFR 0.86 MG/DL (0.55-1.30); GLOMERULAR FILTRATION RATE > 60.0 (>39); GLUCOSE, FASTING 129 MG/DL (74-106); POTASSIUM SERUM 4.2 MMOL/L (3.5-5.1); SODIUM LEVEL 144 MMOL/L (136-145)
== END 2024-05-08 12:31 | disposition home or self-care (01) | DRG 378 ==
LOC: M ED 14:34 → M ED INP 20:18 → M PCU 05-07 00:09
PROVIDERS: ADMIT Internal Medicine; ATTEND Internal Medicine
PROC: B246ZZZ Ultrasonography of Right and Left Heart (ICD-10-PCS; principal; 2024-05-07)
DX: K62.5 Hemorrhage of anus and rectum (principal); N17.9 Acute kidney failure, unspecified; I10 Essential (primary) hypertension; E11.9 Type 2 diabetes mellitus without complications; R29.6 Repeated falls; D64.9 Anemia, unspecified; E78.5 Hyperlipidemia, unspecified; M79.7 Fibromyalgia; E86.0 Dehydration; F32.A Depression, unspecified; K21.9 Gastro-esophageal reflux disease without esophagitis; K42.9 Umbilical hernia without obstruction or gangrene; R55 Syncope and collapse; S80.01XA Contusion of right knee, initial encounter; W19.XXXA Unspecified fall, initial encounter; Y92.9 Unspecified place or not applicable; Y93.9 Activity, unspecified; Z79.84 Long term (current) use of oral hypoglycemic drugs; Z79.4 Long term (current) use of insulin; Z79.899 Other long term (current) drug therapy; Z88.2 Allergy status to sulfonamides; Z91.041 Radiographic dye allergy status; Z88.8 Allergy status to other drugs, medicaments and biological substances; Z88.7 Allergy status to serum and vaccine; Z90.79 Acquired absence of other genital organ(s); Z80.3 Family history of malignant neoplasm of breast

== ENCOUNTER 2024-07-15 11:25 | Day surgery (SDC) | payer MEDICARE ==
[~2024-07-15] VITALS: Ht 162.6 cm; Wt 88.1 kg
[~2024-07-15 11:25] MED LIST changes: +ESOM40CA35 PO; +EZET10TA21 PO; +INSU100I24 SC; +LANTINJ4 SQ; +LIDOCAINE 2% 100MG/5ML SDV (FOR ANES.) As Ordered ONE; +ROSU20TA61 PO; +TRUL0.5I SC; +propofoL 200 MG/20 ML VIAL As Ordered ONE
[2024-07-15] MEDS: NS 1,000 ML IV ONE (12:00)
[2024-07-15 13:10] VITALS: BP 134/63; TEMP 97.2; O2SAT 97
== END 2024-07-15 13:33 | disposition home or self-care (01) ==
LOC: M OPP 11:25
PROVIDERS: ATTEND Surgery
DX: K64.2 Third degree hemorrhoids (principal); R19.7 Diarrhea, unspecified; K62.5 Hemorrhage of anus and rectum; K57.30 Diverticulosis of large intestine without perforation or abscess without bleeding; K30 Functional dyspepsia; K44.9 Diaphragmatic hernia without obstruction or gangrene; I10 Essential (primary) hypertension; E78.5 Hyperlipidemia, unspecified; E11.9 Type 2 diabetes mellitus without complications; F10.10 Alcohol abuse, uncomplicated; F32.A Depression, unspecified; Z88.2 Allergy status to sulfonamides; Z88.8 Allergy status to other drugs, medicaments and biological substances; Z88.7 Allergy status to serum and vaccine; Z79.4 Long term (current) use of insulin; Z79.899 Other long term (current) drug therapy

== ENCOUNTER → 2025-05-19 | Outpatient (CLI) | payer MEDICARE ==
[~2025-05-19] MED LIST changes: -LIDOCAINE 2% 100MG/5ML SDV (FOR ANES.) As Ordered ONE; -ROSU20TA61 PO; +ROSU20TA86 PO; -propofoL 200 MG/20 ML VIAL As Ordered ONE
[2025-05-19 11:07] LABS: CREATININE, URINE 114.7 MG/DL; MALB URINE SIEMENS 8.0 MG/L; MAU/CREAT RATIO 6.9 MCG/MG (0.0-30.0)
[2025-05-19 11:21] LABS: ALT/SGPT 14.0 U/L (7.0-40); AST/SGOT 26.0 U/L (<34); CALCIUM LEVEL 9.1 MG/DL (8.3-10.6); CARBON DIOXIDE LEVEL 28.0 MMOL/L (20-31); CHLORIDE LEVEL 105.0 MMOL/L (98-107); CHOLESTEROL LEVEL 124.0 MG/DL (<200); CHOLESTEROL RISK RATIO 2.37 (<5); CREATININE FOR GFR 1.07 MG/DL (0.55-1.30); ESTIMATED AVERAGE GLUCOSE 183.0 MG/DL (60-110); FREE T4 0.93 NG/DL (0.89-1.76); GLOMERULAR FILTRATION RATE 54.5 (>39); LDL CHOLESTEROL 47.1 MG/DL (<100); NON-HDL-C 71.7 MG/DL; POTASSIUM SERUM 4.5 MMOL/L (3.5-5.1); SODIUM LEVEL 144.0 MMOL/L (136-145); TOTAL 25(OH) VITAMIN D 17.8 NG/ML (20.0-100.0); TRIGLYCERIDES LEVEL 123.0 MG/DL (<150)
== END ==
LOC: M PLALAB 08:51
PROVIDERS: ATTEND Nurse Practitioner Family
DX: E11.65 Type 2 diabetes mellitus with hyperglycemia (principal); E04.0 Nontoxic diffuse goiter; E78.2 Mixed hyperlipidemia

== ENCOUNTER → 2025-05-25 | Outpatient (CLI) | payer MEDICARE | LOC: M WHC 15:22 | PROVIDERS: ATTEND Family Medicine | DX: Z12.31 Encounter for screening mammogram for malignant neoplasm of breast (principal); R92.323 Mammographic fibroglandular density, bilateral breasts ==

== ENCOUNTER → 2025-10-17 | Outpatient (CLI) | payer MEDICARE ==
[~2025-10-17] MED LIST changes: -EZET10TA21 PO; +EZET10TA57 PO
[2025-10-17 16:41] LABS: CALCIUM LEVEL 9.1 MG/DL (8.3-10.6); CARBON DIOXIDE LEVEL 32.0 MMOL/L (20-31); CHLORIDE LEVEL 101.0 MMOL/L (98-107); CREATININE FOR GFR 0.78 MG/DL (0.55-1.30); GLOMERULAR FILTRATION RATE 79.2 (>39); POTASSIUM SERUM 4.1 MMOL/L (3.5-5.1); SODIUM LEVEL 141.0 MMOL/L (136-145)
[2025-10-17 16:44] LABS: TOTAL 25(OH) VITAMIN D 62.9 NG/ML (20.0-100.0)
[2025-10-17 17:20] LABS: ESTIMATED AVERAGE GLUCOSE 189.0 MG/DL (60-110)
== END ==
LOC: M PLALAB 14:13
PROVIDERS: ATTEND Nurse Practitioner Family
DX: E55.9 Vitamin D deficiency, unspecified (principal); E11.65 Type 2 diabetes mellitus with hyperglycemia